=== PATIENT | female | born 1940 | race Caucasian/White ===

== ENCOUNTER 2021-03-08 08:59 | Emergency (ER) | payer MEDICARE ==
[~2021-03-08] VITALS: Ht 167.6 cm; Wt 100.0 kg
[2021-03-08 09:58] LABS: BASOPHILS % (AUTO) 1 % (0-1); EOSINOPHILS % (AUTO) 1 % (1-7); LYMPHOCYTES % (AUTO) 26 % (22-44); MEAN CORPUSCULAR HEMOGLOBIN 29.9 pg (27.0-34.8); MEAN CORPUSCULAR HGB CONC 33.4 g/dL (32.4-35.8); MEAN PLATELET VOLUME 8.6 fL (7.4-10.4); MONOCYTES % (AUTO) 8 % (2-9); NEUTROPHILS % (AUTO) 64 % (42-75); PLATELET COUNT 230 x10^3/uL (130-400); RED BLOOD COUNT 5.06 x10^6/uL (3.82-5.3); RED CELL DISTRIBUTION WIDTH 14.3 % (9.6-15.2)
[2021-03-08 10:04] LABS: ALANINE AMINOTRANSFERASE 18 U/L (12-78); ALBUMIN 4.1 g/dL (3.4-5.0); ANION GAP 6 mmol/L (5-15); CALCIUM 9.4 mg/dL (8.5-10.1); CHLORIDE 108 mmol/L (98-107); CREATININE 0.69 mg/dL (0.55-1.02)
[2021-03-08 10:06] LABS: ALKALINE PHOSPHATASE 102 U/L (45-117); BILIRUBIN,TOTAL 0.8 mg/dL (0.2-1.0); TOTAL PROTEIN 7.6 g/dL (6.4-8.2)
[2021-03-08] MEDS ORDERED: HYDROcodone/APAP 5/325 TABLET ONE (10:19)
--- NOTE | 2021-03-08 10:22 | NUR ---
LATE ENTRY FOR 924, DR VENTURA AT BEDSIDE, PT POC AND ASSESSMENT REVIEWED AND QUESTIONS ANSWERED. ALL MONITORS PLACED, VSS. MARGARET DP/PT DOPLER PULSES OBTAINED +BIPHASIC PULSES, STRONGER ON RIGHT THAN LEFT. CALL LIGHT W/I REACH
--- NOTE | 2021-03-08 10:23 | NUR ---
PT MED NOTED, TEST RESULTS PEDING.
[2021-03-08] MEDS ORDERED: HYDROcodone/APAP 5/325 TABLET PO ONE (10:30)
[2021-03-08 11:00] VITALS: BP_DIAS 96
[2021-03-08 12:39] VITALS: BP_SYST 150
--- NOTE | 2021-03-08 12:40 | NUR ---
DR VENTRUA AT BEDSIDE, MANUAL DOPPLER SBP MEASUREMENT OF LEFT DP VS LEFT ARM BRACHIAL.
== END 2021-03-08 13:44 ==
LOC: ED 10:25
DX: M25.572 Pain in left ankle and joints of left foot (principal); M79.662 Pain in left lower leg; I10 Essential (primary) hypertension
CPT/HCPCS: 36415; 80053; 85025; 93005; 99285

== ENCOUNTER → 2021-03-17 | Outpatient (CLI) | payer MEDICARE, OTHER | END | disposition home or self-care (01) | LOC: CVU 11:45 | PROVIDERS: ATTEND Surgery Vascular Surgery | DX: I73.9 Peripheral vascular disease, unspecified (principal) | CPT/HCPCS: 93922; 93925 ==